=== PATIENT | male | born 1965 | race African-American/Black ===

== ENCOUNTER 2022-08-28 16:01 | Emergency (ER) | payer OTHER ==
[~2022-08-28] VITALS: Ht 190.5 cm; Wt 82.3 kg
[2022-08-28] MEDS ORDERED: OXYC10TA59 PO (16:16)
[2022-08-28] MEDS ORDERED: INSLAN SQ ×3 (16:16→17:52)
[2022-08-28] MEDS ORDERED: CLOP75TA60 PO (16:56)
[2022-08-28] MEDS ORDERED: CARV6 PO (16:56)
[2022-08-28] MEDS ORDERED: SENN-187 PO (16:56)
[2022-08-28] MEDS ORDERED: ATOR40TA28 PO (16:56)
[2022-08-28] MEDS ORDERED: DOCU-385 PO (16:56)
[2022-08-28] MEDS ORDERED: [UNRECOGNIZED DRUG - CODE] IV (16:56)
[2022-08-28] MEDS ORDERED: LISI-894 PO (16:56)
[2022-08-28] MEDS ORDERED: ASPI81TA39 PO (16:56)
[2022-08-28] MEDS ORDERED: HYDR-4072 PO (17:00)
[2022-08-28 17:15] VITALS: BP 126/81
[2022-08-28] MEDS ORDERED: INSU100V42 SQ ×2 (17:50→17:53)
== END 2022-08-28 17:53 | disposition home or self-care (01) ==
LOC: EMS 16:01
DX: Z76.0 Encounter for issue of repeat prescription (principal); E11.9 Type 2 diabetes mellitus without complications; I10 Essential (primary) hypertension; G89.29 Other chronic pain; M54.9 Dorsalgia, unspecified; M25.559 Pain in unspecified hip; Z98.890 Other specified postprocedural states
CPT/HCPCS: 82962; 99282

== ENCOUNTER 2022-08-29 12:02 | Emergency (ER) | payer OTHER ==
[~2022-08-29] VITALS: Ht 175.3 cm; Wt 77.0 kg
[~2022-08-29 12:02] MED LIST: ASPI81TA39 PO; INSLAN SQ; INSU100V42 SQ; OXYC10TA59 PO
[2022-08-29 12:22] VITALS: BP 134/84
== END 2022-08-29 13:06 | disposition home or self-care (01) ==
LOC: EMS 12:17
DX: Z76.0 Encounter for issue of repeat prescription (principal); E11.9 Type 2 diabetes mellitus without complications; I10 Essential (primary) hypertension; G89.29 Other chronic pain; M54.9 Dorsalgia, unspecified; Z98.890 Other specified postprocedural states
CPT/HCPCS: 82962; 99282

== ENCOUNTER 2022-09-30 19:19 | Emergency (ER) | payer OTHER ==
[~2022-09-30] VITALS: Ht 190.5 cm; Wt 86.0 kg
[2022-09-30 19:47] VITALS: BP 120/79
== END 2022-09-30 21:00 | disposition home or self-care (01) ==
LOC: EMS 19:20
DX: E11.65 Type 2 diabetes mellitus with hyperglycemia (principal); I10 Essential (primary) hypertension; G89.29 Other chronic pain; M54.9 Dorsalgia, unspecified; M25.559 Pain in unspecified hip; Z98.890 Other specified postprocedural states; Z76.0 Encounter for issue of repeat prescription
CPT/HCPCS: 99281; Z7502

== ENCOUNTER 2024-02-08 07:10 | Emergency (ER) | payer OTHER ==
[~2024-02-08] VITALS: Ht 185.4 cm; Wt 85.9 kg
[2024-02-08 07:13] VITALS: BP 164/92; PULSE 88; RESP 16; TEMP 98.4
[2024-02-08] MEDS ORDERED: IBUP-1492 PO (07:31)
[2024-02-08] MEDS ORDERED: ACET-3385 PO (07:31)
[2024-02-08] MEDS: IBUPROFEN 600 MG TABLET PO ONE (07:32)
== END 2024-02-08 07:46 | disposition home or self-care (01) ==
LOC: EMS 07:11
DX: S83.91XA Sprain of unspecified site of right knee, initial encounter (principal); E11.9 Type 2 diabetes mellitus without complications; I10 Essential (primary) hypertension; Z98.890 Other specified postprocedural states; V89.2XXA Person injured in unspecified motor-vehicle accident, traffic, initial encounter; Y93.89 Activity, other specified; Y92.89 Other specified places as the place of occurrence of the external cause; Y99.8 Other external cause status
CPT/HCPCS: 82962; 99282; Z7502; Z7610

== ENCOUNTER 2024-11-27 09:52 | Emergency (ER) | payer OTHER ==
[~2024-11-27] VITALS: Ht 185.4 cm; Wt 86.4 kg
[~2024-11-27 09:52] MED LIST changes: +ACET-3385 PO; +IBUP-1492 PO; -OXYC10TA59 PO
[2024-11-27 10:04] VITALS: BP 156/81; PULSE 88; RESP 18; TEMP 98.4; O2SAT 98
[2024-11-27] MEDS: LIDOCAINE 5% TRANSDERMAL PATCH TD ONE (12:51)
[2024-11-27] MEDS ORDERED: LIDO700A15 TP (13:06)
== END 2024-11-27 13:29 | disposition home or self-care (01) ==
LOC: EMS 09:52
DX: R07.81 Pleurodynia (principal); I12.9 Hypertensive chronic kidney disease with stage 1 through stage 4 chronic kidney disease, or unspecified chronic kidney disease; E11.22 Type 2 diabetes mellitus with diabetic chronic kidney disease; N18.9 Chronic kidney disease, unspecified; Z79.4 Long term (current) use of insulin; Z79.82 Long term (current) use of aspirin
CPT/HCPCS: 71101; 82962; 99283